=== PATIENT | female | born 1960 | race Caucasian/White ===

== ENCOUNTER 2017-11-12 17:25 | Observation (INO) | payer OTHER ==
[2017-11-12] MEDS ORDERED: HYDROmorphone 1 MG/ML Syringe IM ONE (17:53)
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
[2017-11-12] MEDS ORDERED: Acetaminophen/HYDROcodone 325-5 MG Tab PO ONE (20:02)
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
[2017-11-12] MEDS ORDERED: Diphtheria,Pertussis(Acell),Tetanus Vaccine 0.5 ML SDV IM ONE (20:44)
[2017-11-12] MEDS ORDERED: LORazepam 2 MG/ML SDV IV ONE (20:54)
[2017-11-12] MEDS ORDERED: Temazepam 15 MG Cap PO PRN (20:54)
[2017-11-12] MEDS ORDERED: HYDROmorphone/Normal Saline 15 MG/30 ML PCA IV PRN (20:54)
[2017-11-12] MEDS ORDERED: Ondansetron 4 MG Tab.DIS PO PRN (20:54)
[2017-11-12] MEDS ORDERED: Albuterol/Ipratropium 3.0-0.5 MG/3 ML Neb Soln NEB PRN (20:54)
[2017-11-12] MEDS ORDERED: Naloxone 0.4 MG/ML SDV IVPUSH PRN (20:54)
[2017-11-12] MEDS ORDERED: Albuterol 0.083% 2.5 MG/3 ML Neb Soln NEB PRN (20:54)
[2017-11-12] MEDS ORDERED: Pantoprazole 40 MG Vial IV ONE (20:54)
[2017-11-12] MEDS: Lactated Ringers 1,000 ML IV SCH (21:15)
[2017-11-12] MEDS: Docusate Sodium 100 MG Cap PO SCH (22:19)
[2017-11-13] MEDS: Lactated Ringers 1,000 ML IV SCH ×2 (05:17→22:50)
[2017-11-13] MEDS: Ondansetron 4 MG/2 ML SDV IV PRN (07:36)
[2017-11-13] MEDS ORDERED: NATURE THYROID PO SCH (09:00)
[2017-11-13] MEDS ORDERED: LORazepam 2 MG/ML SDV IVPUSH PRN (09:43)
[2017-11-13] MEDS ORDERED: Lactated Ringers 1,000 ML IV SCH (09:45)
--- NOTE | 2017-11-13 10:58 | CR ---
Shoulder Comp Lt CLINICAL HISTORY: Trauma FINDINGS: There is a displaced fracture of the clavicle. There is some degenerative change in the AC joint. There are fractures through the third through sixth ribs. Impression: Displaced fracture of the clavicle. Multiple left rib fractures
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
[2017-11-13] MEDS: Docusate Sodium 100 MG Cap PO SCH ×2 (11:35→20:24)
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
[2017-11-13] MEDS ORDERED: Polyethylene Glycol 3350 Powder 17 GM Packet PO PRN (12:52)
[2017-11-13] MEDS: LORazepam 2 MG/ML SDV IVPUSH PRN ×2 (15:37→19:45)
--- NOTE | 2017-11-13 20:10 | PCM.SN ---
- Free Text/Narrative Note: call from [address] [place] [id number] time 1950 s/o: Mrs. Oliver would like to try oral pain medications, concerns INSULATION CUPOLA CHARGER is making her nauseated a: pain management p: order Percocet 5-325mg take one to two tablets po every 4 hours as needed for pain hold INSULATION CUPOLA CHARGER pump, monitor for effectiveness of oral pain medications.
[2017-11-13] MEDS: Acetaminophen/oxyCODONE 325-5 MG Tab PO PRN (20:19)
[2017-11-14] MEDS: Acetaminophen/oxyCODONE 325-5 MG Tab PO PRN ×4 (02:35→21:39)
[2017-11-14] MEDS: Lactated Ringers 1,000 ML IV SCH (06:16)
[2017-11-14] MEDS: LORazepam 2 MG/ML SDV IVPUSH PRN (07:33)
[2017-11-14] MEDS: Ondansetron 4 MG/2 ML SDV IV PRN ×2 (08:46→15:43)
[2017-11-14] MEDS ORDERED: Scopolamine 1.5 MG Transdermal Patch TRDERM SCH (11:30)
[2017-11-14] MEDS ORDERED: Lactated Ringers 1,000 ML IV SCH (11:30)
[2017-11-14] MEDS: Docusate Sodium 100 MG Cap PO SCH ×2 (11:38→21:39)
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
--- NOTE | 2017-11-14 13:48 | CT ---
Head wo Cont CLINICAL HISTORY: Persistent nausea COMPARISON: None TECHNIQUE: Transverse scans were obtained from the base of the skull through the vertex without IV co ntrast on a multislice, multidetector CT scanner. Auto dosage reduction and iterative reconstruction techniques employed. FINDINGS: No focal abnormal parenchymal density is identified. There is a punctate calcification in t he left basal ganglia.. There is no mass effect, hemorrhage, or extraaxial collection. The basal cist erns and sulci over the convexities are normal. The ventricles are for age. IMPRESSION: Normal noncontrast CT brain for age If clinical symptomatology persists or worsens some MR brain is a consideration
[2017-11-15] MEDS: Acetaminophen/oxyCODONE 325-5 MG Tab PO PRN (05:34)
[2017-11-15] MEDS: Docusate Sodium 100 MG Cap PO SCH (08:46)
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
[2017-11-15] MEDS ORDERED: SCOPOLAMINE PATCH CHECK TOP SCH (09:00)
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
== END 2017-11-15 14:34 | disposition home or self-care (01) ==
LOC: JP.ED 17:25 → JP.MS 20:11
PROVIDERS: ADMIT Internal Medicine; ATTEND Hospitalist
DX: S27.321A Contusion of lung, unilateral, initial encounter (principal); S22.42XA Multiple fractures of ribs, left side, initial encounter for closed fracture; S42.012A Anterior displaced fracture of sternal end of left clavicle, initial encounter for closed fracture; T79.7XXA Traumatic subcutaneous emphysema, initial encounter; J90 Pleural effusion, not elsewhere classified; V89.9XXA Person injured in unspecified vehicle accident, initial encounter; E03.9 Hypothyroidism, unspecified
CPT/HCPCS: 36415; 70450; 71045; 71046; 71250; 73030; 80048; 80053; 81001; 85025; 90471; 90715; 94762; 96361; 96372; 96374; 96375; 96376; 97162; 97165; 97530; 99285; A9270; C9113; G0378; J1170; J2060; J2405; J7120